=== PATIENT | male | born 1960 | race Caucasian/White ===

== ENCOUNTER → 2016-11-28 | Outpatient (CLI) | payer BC ==
[~2016-11-28] MED LIST: ASCA500 PO; ASPI81TA28 PO; FEXO1TAB46 PO; NSNN50 NAE; OLME1TAB11 PO; SUMA50TA15 PO; WHEAPOW PO
--- NOTE | 2016-11-28 11:43 | DIAGNOSTIC IMAGING REPORT ---
LEFT KNEE 3 VIEWS CLINICAL HISTORY: Bilateral knee pain. Positive AMA. COMPARISON: None. DISCUSSION: No acute fractures or dislocations are visualized. There is fragmentation of the anterior tibial tuberosity which is felt to be chronic. There are tiny dorsal patellar spurs. There is irregularity and fragmentation of the lateral tibial spine. This is felt to be old. There is no erosive disease IMPRESSION: Chronic changes as described above. No acute fractures. No evidence of erosive disease. Electronically signed by: Roque Finn M.D. 11/28/2016 11:42 AM Dictated Date/Time: 11/28/2016 11:41 AM
--- NOTE | 2016-11-28 11:44 | DIAGNOSTIC IMAGING REPORT ---
RIGHT KNEE 3 VIEWS CLINICAL HISTORY: Bilateral knee pain. Positive CYRIL. COMPARISON: Right knee radiograph July 08, 2013. FINDINGS: Alignment of the right knee is anatomic. There is no fracture or suspicious lesion. There is mild medial compartment joint space narrowing with moderate osteophytosis. There may be a small right knee joint effusion. IMPRESSION: 1. Mild to moderate osteoarthritis of the right knee, most pronounced within the medial compartment. 2. No fracture. 3. No radiographic evidence of an erosive/inflammatory arthropathy. Electronically signed by: Randolph Mendoza M.D. 11/28/2016 11:43 AM Dictated Date/Time: 11/28/2016 11:41 AM
--- NOTE | 2016-11-28 11:44 | DIAGNOSTIC IMAGING REPORT ---
RIGHT HAND MIN 3 VIEWS ROUTINE CLINICAL HISTORY: Right hand pain. Positive CYRIL. COMPARISON: None. DISCUSSION: No fractures or dislocations are visualized. The bony mineralization appears normal. There is no erosive disease. IMPRESSION: 1. Normal bony mineralization 2. No acute fractures 3. No evidence of erosive disease Electronically signed by: Roque Finn M.D. 11/28/2016 11:42 AM Dictated Date/Time: 11/28/2016 11:42 AM
--- NOTE | 2016-11-28 11:45 | DIAGNOSTIC IMAGING REPORT ---
PELVIS 1 OR 2 VIEW ROUTINE CLINICAL HISTORY: Bilateral knee pain. Positive CYRIL. COMPARISON STUDY: CT of the abdomen and pelvis October 24, 2006. FINDINGS: The sacroiliac joints and symphysis pubis are intact. There is no fracture or suspicious lesion. No erosions are identified along the sacroiliac joints. Hip joint spaces are preserved. IMPRESSION: Unremarkable pelvis radiograph. Electronically signed by: Randolph Mendoza M.D. 11/28/2016 11:43 AM Dictated Date/Time: 11/28/2016 11:43 AM
--- NOTE | 2016-11-29 08:26 | DIAGNOSTIC IMAGING REPORT ---
LEFT HAND MIN 3 VIEWS ROUTINE, LEFT KNEE 1 OR 2 VIEWS ROUTINE HISTORY: 56 years-old Male M25.561 Bilateral knee painM25.562 Positive CYRIL (antinuclear ant COMPARISON: None available TECHNIQUE: 3 views of the left hand and 3 views of the right hand FINDINGS: Left hand: Mild first carpometacarpal osteoarthritis is present. Joint spaces otherwise are well-maintained without evidence of erosive arthropathy. There is no acute fracture or dislocation. Soft tissues are unremarkable. Right hand: Mild first carpal metacarpal osteoarthritis is noted. No acute fracture, dislocation or evidence of erosive arthropathy. Soft tissues are within normal limits. Negative for radiopaque foreign body. IMPRESSION: 1. No acute bony abnormality of the right or left hand. 2. Mild degenerative changes involve the first carpometacarpal joints bilaterally. 3. No evidence of erosive arthropathy. The above report was generated using voice recognition software. It may contain grammatical, syntax or spelling errors. Electronically signed by: Chris Keys M.D. 11/28/2016 11:48 AM Dictated Date/Time: 11/28/2016 11:45 AM
== END | disposition home or self-care (01) ==
LOC: C.RAD1850 11:10
PROVIDERS: ATTEND Internal Medicine Rheumatology
DX: M25.561 Pain in right knee (principal); M25.562 Pain in left knee; M54.5 Low back pain; R76.8 Other specified abnormal immunological findings in serum; M17.11 Unilateral primary osteoarthritis, right knee; M89.9 Disorder of bone, unspecified

== ENCOUNTER → 2017-03-29 | Day surgery (SDC) | payer BC ==
[2017-03-06 07:55] VITALS: Ht 170.2 cm; Wt 102.3 kg
[~2017-03-29] VITALS: Ht 170.2 cm; Wt 102.3 kg
[~2017-03-29] MED LIST changes: +CYAN10005 PO; -FEXO1TAB46 PO; +IOPAMIDOL INJ 61% 15 ML VIAL ONE; +LIDOCAINE HCL 1% MPF 5 ML VIAL ONE; +LOSA50TA54 PO; +MELO7.5T5 PO; +MULT-506 PO; -NSNN50 NAE; -OLME1TAB11 PO; +PRLSR20 PO; +SODIUM CHLORIDE 0.9% INJ 10 ML VIAL ONE; -WHEAPOW PO
--- NOTE | 2017-03-29 14:48 | History & Physical Bridge - SC ---
H&P Re-Evaluation Bridge Note: I have examined the patient, reviewed the History & Physical and in the interval since the performance of the History & Physical I have noted the following changes of clinical significance: No changes noted
[2017-03-29 15:11] VITALS: BP 112/72; PULSE 62; TEMP 37.2; O2SAT 94
--- NOTE | 2017-03-29 15:18 | Discharge Instructions ---
Discharge Instructions Date of Service Mar 29, 2017. Visit Reason for Visit: Lumbar Radiculopathy Discharge Discharge Diagnosis / Problem: bilateral thigh weakness Discharge Goals Goal(s): Decrease discomfort, Improve function Medications Stopped Medications Name(s): aspirin mobic Activity Recommendations Activity Limitations: resume your previous activity Anesthesia . Post Anesthesia Instructions: If you have had General Anesthesia or IV Sedation: * Do not drive today. * Resume driving when surgeon permits. * Do not make important decisions or sign legal documents today. * Call surgeon for: 1. Temperature elevations greater than 101 degrees F. 2. Uncontrollable pain. 3. Excessive bleeding. 4. Persistent nausea and vomiting. 5. Medication intolerance (nausea, vomiting or rash). * For nausea and vomiting use only clear liquids such as: tea, soda, bouillon until nausea subsides, then gradually increase diet as tolerated. * If you have any concerns or questions, call your surgeon's office. If physician is unavailable and it is an emergency, call 911 or go to the nearest emergency room. . Diet Recommendations Recommended Home Diet: resume previous diet Procedures Procedures Performed: Lumbar Epidural Steroid Injection Pending Studies Studies pending at discharge: no Medical Emergencies . Who to Call and When: Medical Emergencies: If at any time you feel your situation is an emergency, please call 911 immediately. . Non-Emergent Contact Non-Emergency issues call your: Specialist . . "Provider Documentation" section prepared by Daniel Martinez. .
--- NOTE | 2017-03-29 15:42 | OPERATIVE REPORT ---
DATE OF OPERATION: 03/29/2017 PREOPERATIVE DIAGNOSIS: L3-L4 disk disease with bilateral L3-L4 radiculopathies. POSTOPERATIVE DIAGNOSIS: Same. PROCEDURE: Right paramedian L3-L4 intralaminar epidural steroid injection under fluoroscopic guidance. INDICATIONS: The patient is a 57-year-old white male who has had issues with weakness of the quads, the knees and legs giving out. The problems have been increasing overtime. He is known to have a lumbar radiculopathy at L3-L4 as known from an EMG nerve conduction study. He presents today for an epidural injection to provide him with some relief of the pain that is a celment contributor to this problem and will improve his functional status. PHYSICAL EXAMINATION: GENERAL: Pleasant male seated comfortably in no apparent distress. MUSCULOSKELETAL: He has no issues with forward flexion or extension. He had normal lower extremity strength, intact sensation and increased sensation in the S1 dermatomal distribution. Negative seated straight leg raises. CONSENT: Verbal and written consent was obtained from the patient. Risks and benefits were reviewed. Risks include, but are not limited to epidural abscess, epidural hematoma, allergic reaction, and dural puncture. The patient wishes to proceed. DESCRIPTION OF PROCEDURE: The patient was taken back into the special procedures room of the [facility], where he was maintained in a prone position. Backside was cleansed with Betadine x3 and a dry sterile dressing was applied. Fluoroscope was used to identify the L3-L4 intralaminar space. Overlying skin on the right side was then anesthetized with 4 mL of lidocaine 1% with a 25-gauge 1-1/2 inch needle. A 22-gauge 3-1/2 inch Tuohy needle was then directed down towards the intralaminar space. It was advanced under lateral fluoroscopic guidance and loss of resistance was noted at a depth of 5 cm. Isovue-300 contrast 1 mL was injected in which demonstrated epidural uptake pattern. He then underwent injection after negative aspiration of 40 mg of Depo-Medrol and 4 mL of sodium chloride. Injection was well tolerated. DISPOSITION: 1. The patient was taken out into the discharge recovery area, where he will be discharged home once discharge criteria have been met. 2. Follow up in the [facility] office in 4 weeks' time. I attest to the content of the Intraoperative Record and any orders documented therein. Any exception s are noted below.
== END | disposition home or self-care (01) ==
LOC: X.SURG 13:48
PROVIDERS: ATTEND Physical Medicine & Rehabilitation
DX: M51.16 Intervertebral disc disorders with radiculopathy, lumbar region (principal); K21.9 Gastro-esophageal reflux disease without esophagitis; I10 Essential (primary) hypertension; E78.5 Hyperlipidemia, unspecified; Z91.040 Latex allergy status; Z79.82 Long term (current) use of aspirin; Z79.899 Other long term (current) drug therapy; Z82.49 Family history of ischemic heart disease and other diseases of the circulatory system

== ENCOUNTER → 2017-04-27 | Day surgery (SDC) | payer BC, OTHER ==
[2017-04-06 11:34] VITALS: Ht 170.2 cm; Wt 102.3 kg
[~2017-04-27] VITALS: Ht 170.2 cm; Wt 102.3 kg
[~2017-04-27] MED LIST changes: +ATROPINE SULFATE 0.1 MG/ML 5ML SYR IV PRN; +BUPIVACAINE/EPINEPHRINE 0.5% MPF 1:200,000 30 ML VIAL ONE; +CEFAZOLIN 2000MG IV PUSH 10 ML IV SCH; +EpHEDrine SULFATE INJ 50 MG/ML AMP IV PRN; +FENTANYL CITRATE INJ 50 MCG/1 ML 2 ML VIAL IV PRN; +HYDR-5688 PO; +HYDROCODONE/ACETAMOPHEN 5/325MG TAB PO PRN; +IBUP-103 PO; -IOPAMIDOL INJ 61% 15 ML VIAL ONE; +KETAMINE HCL INJ 50 MG/ML 10 ML VIAL ONE; +LACTATED RINGER'S 1000ML 1,000 ML IV SCH; -LIDOCAINE HCL 1% MPF 5 ML VIAL ONE; +LIDOCAINE HCL 2% 2 ML VIAL (20MG/ML) ONE; +LIDOCAINE/EPINEPHRINE 1% 20 ML VIAL ONE; -MELO7.5T5 PO; +MIDAZOLAM HCL 1 MG/ML 2ML VIAL ONE; +NAPR1TAB9 PO; +ONDANSETRON INJ 2 MG/ML 2 ML VIAL IV PRN; +PROPOFOL IV EMULSION 10 MG/ML 20 ML VIAL IV ONE; +SODIUM CHLORIDE 0.9% 1000ML 1,000 ML IV SCH
--- NOTE | 2017-04-27 11:19 | [facility] Post Operative Brief Note ---
Immediate Operative Summary Operative Date Apr 27, 2017. Pre-Operative Diagnosis Left ring trigger finger Post-Operative Diagnosis Same as pre-op Procedure(s) Performed Left Ring Trigger Finger Release Surgeon Nutrition Teacher Surgeon(s) Boris BOLAÑOS, Neli Larkin, student Estimated Blood Loss minimal Findings as above Specimens none Anesthesia local wiith IV sedation Complication(s) None Disposition Recovery Room / PACU
--- NOTE | 2017-04-27 11:34 | Discharge Instructions-SurgCtr ---
Discharge Instructions Date of Service Apr 27, 2017. Visit Reason for Visit: Left Ring Trigger Finger Discharge Discharge Diagnosis / Problem: left ring trigger finger Discharge Goals Goal(s): Decrease discomfort, Improve function, Increase independence Activity Recommendations Activity Limitations: per Instructions/Follow-up section Weightbearing Status: Left non-weightbearing (left hand) Anesthesia . Post Anesthesia Instructions: If you have had General Anesthesia or IV Sedation: * Do not drive today. * Resume driving when surgeon permits. * Do not make important decisions or sign legal documents today. * Call surgeon for: 1. Temperature elevations greater than 101 degrees F. 2. Uncontrollable pain. 3. Excessive bleeding. 4. Persistent nausea and vomiting. 5. Medication intolerance (nausea, vomiting or rash). * For nausea and vomiting use only clear liquids such as: tea, soda, bouillon until nausea subsides, then gradually increase diet as tolerated. * If you have any concerns or questions, call your surgeon's office. If physician is unavailable and it is an emergency, call 911 or go to the nearest emergency room. . Instructions / Follow-Up Instructions / Follow-Up The following are instructions to follow after minor hand surgery. ACTIVITY RECOMMENDATIONS: * Minimize activity until your first visit after surgery. * No excessive walking, jogging, sports or laboring. * Return to activity is individualized. Most patients are able to return to everyday activities within 2 weeks. * Return to sports or intensive labor usually occurs at 1-2 months. * DRIVING: Driving may be resumed when you feel you have adequate pain control and use of the hand. * BATHING: You may shower or sponge-bathe immediately after surgery. The dressing will need to be covered with a plastic bag or plastic wrap until the dressing is changed on the fourth or fifth day after surgery. Once the dressing has been changed on the fourth or fifth day after surgery, you may shower and get the incision wet. * Wash with regular soap and water. * Do not bathe (submerge the incision), soak, swim or use a hot tub until the incision is completely healed over with normal skin and the doctor has given the OK to proceed. * There is no need to apply any ointments, powders or salves to your incision. * Do not apply alcohol or hydrogen peroxide directly to the incision. Diluted peroxide (50:50 mixture with sterile saline) may be used to clean dried blood from around the incision area. WORK/SCHOOL: * You may return to sedentary work or school when you are feeling comfortable. This is usually 3-7 days after surgery. * Expect increased discomfort with increased activity. Continue to elevate and ice the hand as much as possible. DIET: * Resume previous diet. MEDICATIONS: * You will have a prescription for pain medication and an anti-inflammatory medication after surgery. Use the pain pills for severe pain and the anti-inflammatory for less severe pain. * Once the pain pills have run out, try to use the anti-inflammatory. If this is not effective then contact the office for assistance. * The pain medication may cause nausea, constipation and sleepiness. You should see how they affect you before driving or similar activity. * The anti-inflammatory may cause stomach upset and bleeding. If this occurs, let your doctor know immediately . * Some patients may need blood clot prevention. This can be done with either a pill or a simple shot. Your doctor will advise you on when to begin these medications and how to take them. * Do not take aspirin or other anti-inflammatory products (i.e. Advil or Aleve ) if taking blood thinner medication. * Take a stool softener like Colace or a stimulant like Senokot to prevent constipation. SPECIAL CARE INSTRUCTIONS: ICE: * Do not apply ice directly to the skin. * Use a thin dressing or stockinet between the skin and ice bag. The dressing in place after surgery will suffice. * Apply ice for 20-30 minutes and repeat every 2-4 hours. This is especially important for the first 3-7 days after surgery. * Once the pain improves, use ice as needed. ELEVATION: * Keep your hand elevated at or above the level of your heart as much as possible. * Expect some increased discomfort and swelling if you allow your hand to hang down for any length of time. DRESSING: * Your dressing will be changed 4-5 days after surgery by the physical therapist or physician's regulatory affairs assistant. Leave your dressing intact until this time. * You may then change your dressing daily with clean dry gauze or Band-aids and a soft wrap or stockinet. * Always wash your hands prior to touching the incision area. * Once the stitches are removed, you may leave the wound open to air or cover with a thin bandage. * There is no need to apply any ointments, powders or salves to your incision. * Expect some bloody drainage for the first few days after surgery. * Leave the tape strips in place (if present) for 5-7 days. * The initial dressing after surgery may become soaked with blood or fluid which is normal. You may reinforce your dressing with clean, dry gauze as needed. BRACE: * Bracing is generally not needed after routine hand surgery. THERAPY: * Physical therapy may be prescribed after your surgery. * For carpal tunnel and trigger digit surgery you may begin moving your fingers and wrist immediately after surgery as tolerated. * Be careful to not overuse. * Once the sutures are removed, further range of motion exercises can be performed. * Hand incisions may be very sensitive for a few months after surgery so avoid excessive pressure on the incision. If necessary, use a padded weightlifters' glove. * You may massage the incision with skin cream to make it less sensitive and reduce scarring. * Hand strength usually returns with normal use. * If needed, squeezing a soft sponge or Play-dough may help. * Your doctor will recommend physical therapy if necessary. PROBLEMS/QUESTIONS: * If you have any problems such as severe pain, numbness, tingling or high fevers or if you have any questions, please contact the office at [phone]. * It is not uncommon to have some numbness and tingling after the surgery especially if you have had a nerve block done. This should gradually improve over the first 1- 2 days. If this persists longer or worsens then contact the office. FOLLOW UP VISIT: * If not already scheduled, please call the office at to schedule follow-up appointments for approximately 10 days, 6 weeks and 3 months after surgery. * You have a follow up appointment with [facility] on 05/01/17 at 11 :15 a.m. * You have a follow up appointment with Dr. Michaud on 05/10/17 at 2:00 p.m. Diet Recommendations Home Diet: no limitations, resume previous diet Procedures Procedures Performed: Left Ring Trigger Finger Release Pending Studies Studies pending at discharge: no Medical Emergencies . Who to Call and When: Medical Emergencies: If at any time you feel your situation is an emergency, please call 911 immediately. . Non-Emergent Contact Non-Emergency issues call your: Surgeon Call Non-Emergent contact if: temperature is above 101, your pain is not controlled, your pain is worsening, your pain is unusual for you, wound has increased drainage, wound has increased redness, wound has increased pain, you have any medication questions . . "Provider Documentation" section prepared by Cathi Carr. . [place] Drug Monitoring Program Search Results: patient reviewed within database, no issues identified
[2017-04-27 11:37] VITALS: TEMP 36.6
--- NOTE | 2017-04-27 11:38 | [facility] Operative Report ---
Operative Report Operative Date Apr 27, 2017. Pre-Operative Diagnosis Left ring trigger finger Post-Operative Diagnosis Same as pre-op Procedure(s) Performed Left Ring Trigger Finger Release Surgeon Market Analysis Director Surgeon(s) Boris BOLAÑOS, MIKE [employer] student Estimated Blood Loss minimal Findings left ring finger trigger digit Specimens none Drains None Anesthesia local wiith IV sedation Complication(s) None Disposition Recovery Room / PACU (stable) Indications Patient is a 57 year old male with complaints of left hand ring finger locking and catching. It causes pain, interferes with daily activities. X-rays showed no bony abnormality. Surgical intervention recommended, he agreed to proceed. Risks/complications discussed, informed consent obtained. Description of Procedure Patient was taken to the operating room, placed under sedation, given 2gm IV Ancef for surgical prophylaxis. Time out performed, prepped and draped in routine sterile fashion. I was present during the entire case, please see Dr. Michaud's operative report for further detail. Patient was awakened and taken to the recovery room in stable condition. I attest to the content of the Intraoperative Record and any orders documented therein. Any exceptions are noted below.
--- NOTE | 2017-04-27 11:49 | Anesthesiology Progress Note ---
Anesthesia Post Op Note Date & Time Apr 27, 2017 at 11:49 Vital Signs Pain Intensity: 0 Vital Signs Past 12 Hours Date Time Temp Pulse Resp B/P (MAP) Pulse Ox O2 Delivery O2 Flow Rate FiO2 04/27/17 11:37 36.6 82 16 134/82 (99) 95 Room Air 04/27/17 09:53 36.8 60 22 143/93 (110) 98 Room Air Notes Mental Status: alert / awake / arousable, participated in evaluation Nausea / Vomiting: adequately controlled Pain: adequately controlled Airway Patency, RR, SpO2: stable & adequate BP & HR: stable & adequate Hydration State: stable & adequate Anesthetic Complications: no major complications apparent
[2017-04-27 12:00] VITALS: BP 136/87; PULSE 69; O2SAT 93
--- NOTE | 2017-04-27 12:52 | [facility] Operative Report ---
Operative Report Operative Date Apr 27, 2017. Pre-Operative Diagnosis Left ring trigger finger Post-Operative Diagnosis Same as pre-op Procedure(s) Performed Left Ring Trigger Finger Release Surgeon Optical Model Maker And Tester Surgeon(s) Boris BOLAÑOS, MIKE [employer] student Estimated Blood Loss minimal Findings As above Specimens none Anesthesia local with IV sedation Complication(s) None Disposition Recovery Room / PACU Indications The patient is a 57-year-old male with a symptomatic left ring finger trigger digit refractory to nonsurgical treatment. Description of Procedure Informed consent was obtained. The patient was identified as Lucius Ruiz. He identified the operative site as the left ring finger. A preoperative surgical timeout was performed. A preoperative dose of IV antibiotics was given. He was taken to the operating room positioned supine on the hospital stretcher. The left hand was suspended on a hand table. A tourniquet was applied to the left forearm. The preoperative exam showed passive locking with palpable nodule left ring finger. DVT prophylaxis was not indicated. 1% lidocaine with epinephrine was injected for analgesia. The limb was prepped and draped in usual sterile fashion. The limb was exsanguinated with the Esmarch and tourniquet inflated to 225 mmHg. A oblique incision was made overlying the metacarpophalangeal joint. Blunt dissection was performed down in the midline. Retractors were inserted and the thickened A1 kolton was identified and released. This relieved the triggering phenomenon. Full movement was obtained. The tendons looked normal there were no cysts or other pathological processes noted. The tenosynovium proximal to the kolton was also divided. The wound was irrigated with sterile saline and then the closed at the level of the skin with 4-0 nylon interrupted sutures. A soft sterile dressing was applied. The tourniquet was let down after 10 minutes of inflation. Patient was awakened from anesthesia and taken to the recovery room in stable condition. There were no specimens or complications. Counts are correct in the case. Blood loss was minimal. At the conclusion operation spoke the patient's informed her my findings. Postoperative instructions were given. He will be treated postoperatively according to my standard trigger digit pathway. I attest to the content of the Intraoperative Record and any orders documented therein. Any exceptions are noted below.
== END | disposition home or self-care (01) ==
LOC: X.SURG 09:27
PROVIDERS: ATTEND Physical Medicine & Rehabilitation Sports Medicine
DX: M65.342 Trigger finger, left ring finger (principal); I10 Essential (primary) hypertension; E78.5 Hyperlipidemia, unspecified; K21.9 Gastro-esophageal reflux disease without esophagitis; E66.9 Obesity, unspecified; M19.90 Unspecified osteoarthritis, unspecified site; E78.00 Pure hypercholesterolemia, unspecified; J45.909 Unspecified asthma, uncomplicated; Z87.01 Personal history of pneumonia (recurrent)

== ENCOUNTER 2017-05-23 20:51 | Inpatient (IN) | payer OTHER ==
[~2017-05-23] VITALS: Ht 170.2 cm; Wt 102.7 kg
[~2017-05-23 20:51] MED LIST changes: -ATROPINE SULFATE 0.1 MG/ML 5ML SYR IV PRN; -BUPIVACAINE/EPINEPHRINE 0.5% MPF 1:200,000 30 ML VIAL ONE; -CEFAZOLIN 2000MG IV PUSH 10 ML IV SCH; -EpHEDrine SULFATE INJ 50 MG/ML AMP IV PRN; -FENTANYL CITRATE INJ 50 MCG/1 ML 2 ML VIAL IV PRN; -HYDROCODONE/ACETAMOPHEN 5/325MG TAB PO PRN; -KETAMINE HCL INJ 50 MG/ML 10 ML VIAL ONE; -LACTATED RINGER'S 1000ML 1,000 ML IV SCH; -LIDOCAINE HCL 2% 2 ML VIAL (20MG/ML) ONE; -LIDOCAINE/EPINEPHRINE 1% 20 ML VIAL ONE; -MIDAZOLAM HCL 1 MG/ML 2ML VIAL ONE; -ONDANSETRON INJ 2 MG/ML 2 ML VIAL IV PRN; -PROPOFOL IV EMULSION 10 MG/ML 20 ML VIAL IV ONE; -SODIUM CHLORIDE 0.9% 1000ML 1,000 ML IV SCH; -SODIUM CHLORIDE 0.9% INJ 10 ML VIAL ONE
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
[2017-05-23 21:43] LABS: PTT PATIENT 31.3 SECONDS (21.0-31.0)
[2017-05-23 21:45] LABS: BASO % 0.3 %; BASO ABS # 0.03 K/uL (0-0.2); EOS ABS # 0.12 K/uL (0-0.5); HEMATOCRIT 21.5 % (42-52); HEMOGLOBIN 7.2 g/dL (14.0-18.0); IG# 0.03 K/uL (0.00-0.02); LYMPH % 10.9 %; LYMPH ABS # 1.29 K/uL (1.2-3.4); MEAN CELL VOLUME 93.5 fL (80-100); MEAN CORPUSCULAR HEMOGLOBIN 31.3 pg (25-34); MEAN CORPUSCULAR HGB CONC 33.5 g/dl (32-36); MEAN PLATELET VOLUME 9.9 fL (7.4-10.4); MONO % 11.2 %; MONO ABS # 1.32 K/uL (0.11-0.59); NEUT % 76.3 %; NEUT ABS # 9.03 K/uL (1.4-6.5); NUCLEATED RED BLOOD CELL ABS 0.02 K/uL (0-0); PLATELET COUNT 454 K/uL (130-400); RED CELL DISTRIBUTION WIDTH CV 13.9 % (11.5-14.5); RED CELL DISTRIBUTION WIDTH SD 47.5 fL (36.4-46.3); WHITE BLOOD COUNT 11.82 K/uL (4.8-10.8)
[2017-05-23 21:52] LABS: CALCIUM 8.1 mg/dl (8.5-10.1); CREATININE 1.78 mg/dl (0.60-1.40)
[2017-05-23] MEDS ORDERED: IPRASOL4 INH (21:55)
[2017-05-23] MEDS ORDERED: CYCL10TA6 PO (22:03)
[2017-05-23] MEDS ORDERED: FOLI1TAB8 PO (22:03)
[2017-05-23] MEDS ORDERED: OXYC-88 PO (22:03)
[2017-05-23] MEDS ORDERED: PANT1TAB3 PO (22:03)
[2017-05-23] MEDS ORDERED: ENOX30IN4 SQ (22:03)
[2017-05-23] MEDS ORDERED: FERR325T5 PO (22:03)
[2017-05-23] MEDS ORDERED: MORP1TAB11 PO (22:03)
[2017-05-23 22:04] LABS: TOTAL PROTEIN 6.3 gm/dl (6.4-8.2)
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
--- NOTE | 2017-05-23 22:24 | DIAGNOSTIC IMAGING REPORT ---
SINGLE VIEW CHEST CLINICAL HISTORY: Fever. Recent trauma with rib fractures. FINDINGS: An AP, portable, upright chest radiograph is obtained. No prior studies are available for comparison at the time of dictation. The examination is degraded by portable technique and patient rotation. The cardiomediastinal silhouette is unremarkable. There are small pleural effusions with bibasilar airspace opacities. No pneumothorax is seen. There are right-sided rib fractures. IMPRESSION: 1. There are small pleural effusions with bibasilar airspace opacities. This could represent atelectasis versus an infectious/inflammatory pneumonitis. Clinical correlation will be required. 2. There are right-sided rib fractures. No pneumothorax is seen. Electronically signed by: oJse Domingo M.D. 05/23/2017 10:23 PM Dictated Date/Time: 05/23/2017 10:20 PM
[2017-05-23] MEDS ORDERED: OPTIRAY 320 IV PRN (23:15)
[2017-05-23] MEDS ORDERED: CEFTRIAXONE SOD INJ 1 GM ADDVIAL IV STA (23:46)
[2017-05-24] VITALS (11 sets, daily range): BP systolic 106–135; BP diastolic 61–78; PULSE 85–104; TEMP 37–38.1; O2SAT 91–98; Ht 170.2 cm; Wt 102.7 kg
[2017-05-24] MEDS ORDERED: AZITHROMYCIN 250 MG TAB PO ONE
[2017-05-24] MEDS ORDERED: SODIUM CHLORIDE 0.9% 1000ML 1,000 ML IV STA (00:44)
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
[2017-05-24] MEDS ORDERED: NITROGLYCERIN 0.4 MG SL PER TAB CHARGE SL PRN (01:45)
[2017-05-24] MEDS ORDERED: ONDANSETRON INJ 2 MG/ML 2 ML VIAL IV PRN (01:45)
[2017-05-24] MEDS ORDERED: ALUMINUM/MAGNESIUM/SIMETH (MAALOX MAX) 30 ML UDC PO PRN (01:45)
[2017-05-24] MEDS ORDERED: MAGNESIUM HYDROXIDE SUSP 30 ML UDC PO PRN (01:45)
[2017-05-24] MEDS ORDERED: POLYETHYLENE (MIRALAX) 17 GM PACK PO PRN (01:45)
[2017-05-24] MEDS ORDERED: ACETAMINOPHEN 325 MG TAB PO PRN (01:45)
[2017-05-24] MEDS ORDERED: DOCUSATE SODIUM 100 MG CAP PO PRN (02:00)
[2017-05-24] MEDS ORDERED: ALBUT/IPRATROP 3MG/0.5MG NEB 3 ML VIAL INH PRN (02:00)
[2017-05-24] MEDS ORDERED: CEFEPIME IV 1,000 MG in DEXTROSE 5% 100ML 100 ML IV SCH (02:00)
[2017-05-24] MEDS: SODIUM CHLORIDE 0.9% 1000ML 1,000 ML IV SCH ×3 (03:08→23:11)
[2017-05-24] MEDS: CEFEPIME IV 1,000 MG in SYRINGE 0 ML IV SCH ×2 (03:09→14:14)
[2017-05-24] MEDS: OXYCODONE/ACETAMINOPHEN 10/325MG TAB PO PRN ×3 (03:35→20:18)
[2017-05-24 05:25] LABS: INFLUENZA A PCR Neg for Influ A (NEG); INFLUENZA B PCR Neg for Influ B (NEG)
[2017-05-24] MEDS: POLYETHYLENE (MIRALAX) 17 GM PACK PO SCH (06:16)
[2017-05-24] MEDS: CYCLOBENZAPRINE HCL 10 MG TAB PO PRN (06:43)
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
--- NOTE | 2017-05-24 06:55 | DIAGNOSTIC IMAGING REPORT ---
CT OF THE CHEST WITH IV CONTRAST CLINICAL HISTORY: recent rib fractures. low hgb COMPARISON STUDY: Chest x-ray dated 05/23/2017 TECHNIQUE: Following the IV administration of 115 mL of Optiray-320, CT of the thorax was performed from the thoracic inlet to the lung bases. Images are reviewed in the axial, sagittal, and coronal planes. IV contrast was administered without complication. A dose lowering technique was utilized adhering to the principles of ALARA. CT DOSE: FINDINGS: Thyroid: Imaged portions of the thyroid gland are normal in appearance. Thoracic aorta: The thoracic aorta is normal in course and caliber, noting standard 3-vessel arch anatomy. No aneurysm or dissection is seen. Pulmonary vasculature: The pulmonary trunk is normal in caliber. There are no central filling defects identified to suggest pulmonary embolus. Note that this examination was not protocoled for the evaluation of pulmonary emboli. HEART: The heart is normal in size and configuration, without pericardial effusion. Lungs and pleural spaces: There are bibasal or dependent airspace opacities, likely atelectatic. No pneumothorax is visualized. There are no significant pleural effusions. Mediastinum: There is no mediastinal lymphadenopathy. Hortencia: There is no evidence of pathologic hilar adenopathy Axilla: There is no evidence of pathologic axillary lymphadenopathy Upper abdomen: There is thickening of the Gerota's fascia on the left. Skeletal structures: There are acute fractures of the right fourth through eighth ribs. There are fractures of the left fifth sixth and ninth ribs which may be old. There is an equivocal mid manubrial fracture IMPRESSION: 1. No evidence of pneumothorax 2. No evidence of mediastinal injury 3. Bibasal airspace opacities. 4. Acute fractures of the right fourth through eighth ribs 5. Fractures the left fifth sixth and ninth ribs which may be old 6. Equivocal manubrial fracture 7. Thickening of Gerota's fascia on the left Electronically signed by: Roque Finn M.D. 05/24/2017 6:54 AM Dictated Date/Time: 05/24/2017 6:48 AM
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
[2017-05-24] MEDS: PANTOprazole SOD 40 MG TAB PO SCH (07:29)
[2017-05-24] MEDS: FERROUS SULFATE 325 MG TAB PO SCH (07:29)
[2017-05-24] MEDS: HYDROmorphone INJ 1 MG/ML SYR IV PRN ×2 (07:29→12:03)
[2017-05-24] MEDS: LIDODERM (LIDOCAINE) PATCH 5% TD SCH (07:30)
[2017-05-24 08:03] LABS: HEMATOCRIT 22.9 % (42-52); HEMOGLOBIN 7.7 g/dL (14.0-18.0); MEAN CELL VOLUME 91.6 fL (80-100); MEAN CORPUSCULAR HEMOGLOBIN 30.8 pg (25-34); MEAN CORPUSCULAR HGB CONC 33.6 g/dl (32-36); MEAN PLATELET VOLUME 9.7 fL (7.4-10.4); PLATELET COUNT 419 K/uL (130-400); RED CELL DISTRIBUTION WIDTH CV 14.5 % (11.5-14.5); RED CELL DISTRIBUTION WIDTH SD 48.4 fL (36.4-46.3); WHITE BLOOD COUNT 10.52 K/uL (4.8-10.8)
[2017-05-24 08:39] LABS: CREATININE 1.73 mg/dl (0.60-1.40); POTASSIUM 4.1 mmol/L (3.5-5.1)
[2017-05-24 08:40] LABS: PHOSPHORUS 3.8 mg/dl (2.5-4.9)
[2017-05-24] MEDS ORDERED: LOSARTAN POTASSIUM 50 MG TAB PO SCH (09:00)
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
[2017-05-24 18:22] LABS: HEMATOCRIT 22.7 % (42-52); HEMOGLOBIN 7.6 g/dL (14.0-18.0); RETIC COUNT % 1.9 % (0.5-2.0)
[2017-05-24] MEDS: AZITHROMYCIN IV 500 MG in DEXTROSE 5% 250ML 250 ML IV SCH (19:58)
--- NOTE | 2017-05-24 21:14 | DIAGNOSTIC IMAGING REPORT ---
RIGHT HIP 1 VIEW HISTORY: Rt Total hip arthroplasty COMPARISON: Right hip CT 05/23/2017. FINDINGS: There is no fracture or dislocation. Lateral soft tissue swelling likely due to recent incision. Skin sylvie are in place. A right total hip arthroplasty appears intact. IMPRESSION: Status post right total hip arthroplasty. No evidence for hardware complication. Electronically signed by: Julio Burk M.D. 05/24/2017 9:13 PM Dictated Date/Time: 05/24/2017 9:12 PM
[2017-05-25] VITALS (10 sets, daily range): BP systolic 118–128; BP diastolic 54–74; PULSE 84–93; TEMP 36.9–37.9; O2SAT 86–96
[2017-05-25] MEDS: CEFEPIME IV 1,000 MG in SYRINGE 0 ML IV SCH ×2 (02:37→12:59)
[2017-05-25] MEDS: OXYCODONE/ACETAMINOPHEN 10/325MG TAB PO PRN ×3 (02:41→20:33)
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
[2017-05-25 07:01] LABS: ALBUMIN 1.9 gm/dl (3.4-5.0); CREATININE 1.61 mg/dl (0.60-1.40); POTASSIUM 4.3 mmol/L (3.5-5.1)
[2017-05-25 07:05] LABS: TOTAL PROTEIN 6.4 gm/dl (6.4-8.2)
[2017-05-25 08:18] LABS: BASO % 0.3 %; BASO ABS # 0.03 K/uL (0-0.2); EOS % 1.8 %; HEMATOCRIT 24.8 % (42-52); HEMOGLOBIN 8.2 g/dL (14.0-18.0); IG# 0.03 K/uL (0.00-0.02); LYMPH % 8.2 %; LYMPH ABS # 0.91 K/uL (1.2-3.4); MEAN CELL VOLUME 91.5 fL (80-100); MEAN CORPUSCULAR HEMOGLOBIN 30.3 pg (25-34); MEAN CORPUSCULAR HGB CONC 33.1 g/dl (32-36); MEAN PLATELET VOLUME 9.4 fL (7.4-10.4); MONO % 7.7 %; MONO ABS # 0.85 K/uL (0.11-0.59); NEUT % 81.7 %; NEUT ABS # 9.02 K/uL (1.4-6.5); PLATELET COUNT 527 K/uL (130-400); RED CELL DISTRIBUTION WIDTH CV 14.1 % (11.5-14.5); RED CELL DISTRIBUTION WIDTH SD 46.5 fL (36.4-46.3); WHITE BLOOD COUNT 11.04 K/uL (4.8-10.8)
[2017-05-25] MEDS: PANTOprazole SOD 40 MG TAB PO SCH (09:02)
[2017-05-25] MEDS: FERROUS SULFATE 325 MG TAB PO SCH (09:02)
[2017-05-25] MEDS: HYDROmorphone INJ 1 MG/ML SYR IV PRN ×2 (09:03→13:01)
[2017-05-25] MEDS: POLYETHYLENE (MIRALAX) 17 GM PACK PO SCH (09:04)
[2017-05-25] MEDS: LIDODERM (LIDOCAINE) PATCH 5% TD SCH (09:05)
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
--- NOTE | 2017-05-25 15:46 | DIAGNOSTIC IMAGING REPORT ---
RIGHT WRIST 3 VIEWS CLINICAL HISTORY: Wrist fracture. FINDINGS: 3 views of the right wrist are obtained. No prior studies are available for comparison at the time of dictation. The examination is performed through a cast, obscuring fine bony detail. There is a minimally distracted fracture of the distal radial metaphysis with intra-articular extension. Alignment is near-anatomic. The distal ulna appears intact. No additional fracture is clearly identified. Overlying soft tissue edema is observed. IMPRESSION: There is a minimally distracted fracture of the distal radius with intra-articular extension as above. Electronically signed by: Jose Domingo M.D. 05/25/2017 3:45 PM Dictated Date/Time: 05/25/2017 3:43 PM
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
--- NOTE | 2017-05-25 16:34 | Consultant Recommendations ---
Sde Recommendations Date of Service May 25, 2017. Sde Recommendations When cleared medically, patient can be sent back to [facility] for inpatient rehab. Patient will need to follow up with his orthopedic surgeon at [facility] most likely at 2 wks post op. Should advised patient's to contact [facility] if the appointment is not already scheduled. Otherwise we will continue to follow him for his trigger finger surgery as indicated.
[2017-05-25] MEDS: ENOXAPARIN 40 MG/0.4 ML SYR SQ SCH (20:29)
[2017-05-25] MEDS: AZITHROMYCIN IV 500 MG in DEXTROSE 5% 250ML 250 ML IV SCH (20:37)
[2017-05-26] MEDS: CEFEPIME IV 1,000 MG in SYRINGE 0 ML IV SCH ×2 (02:07→13:46)
[2017-05-26 03:57] VITALS: TEMP 37.7
[2017-05-26 06:31] LABS: HEMATOCRIT 23.5 % (42-52); HEMOGLOBIN 7.8 g/dL (14.0-18.0); MEAN CELL VOLUME 91.4 fL (80-100); MEAN CORPUSCULAR HEMOGLOBIN 30.4 pg (25-34); MEAN CORPUSCULAR HGB CONC 33.2 g/dl (32-36); MEAN PLATELET VOLUME 9.4 fL (7.4-10.4); PLATELET COUNT 639 K/uL (130-400); RED CELL DISTRIBUTION WIDTH CV 13.9 % (11.5-14.5); RED CELL DISTRIBUTION WIDTH SD 46.4 fL (36.4-46.3)
[2017-05-26 07:11] LABS: CALCIUM 7.8 mg/dl (8.5-10.1); CREATININE 1.5 mg/dl (0.60-1.40)
[2017-05-26 07:47] VITALS: BP 142/88; PULSE 89; TEMP 36.9; O2SAT 94
[2017-05-26] MEDS: LIDODERM (LIDOCAINE) PATCH 5% TD SCH (09:00)
[2017-05-26] MEDS: POLYETHYLENE (MIRALAX) 17 GM PACK PO SCH (09:00)
[2017-05-26] MEDS: FERROUS SULFATE 325 MG TAB PO SCH (09:26)
[2017-05-26] MEDS: PANTOprazole SOD 40 MG TAB PO SCH (09:27)
[2017-05-26] MEDS: OXYCODONE/ACETAMINOPHEN 10/325MG TAB PO PRN ×2 (09:28→13:47)
[2017-05-26 09:32] VITALS: O2SAT 89
[2017-05-26 09:57] VITALS: O2SAT 2; O2SAT 94
[2017-05-26 16:07] VITALS: BP 126/78; PULSE 85; TEMP 37; O2SAT 94
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
[2017-05-26] MEDS ORDERED: LEVOFLOXACIN 750 MG TAB PO ONE (17:23)
[2017-05-26] MEDS: ENOXAPARIN 40 MG/0.4 ML SYR SQ SCH (18:41)
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
[2017-05-26 22:58] VITALS: BP 141/85; PULSE 85; TEMP 37.4; O2SAT 94
[2017-05-27] MEDS: OXYCODONE/ACETAMINOPHEN 10/325MG TAB PO PRN ×3 (04:29→13:34)
[2017-05-27 07:17] LABS: HEMATOCRIT 23.7 % (42-52); HEMOGLOBIN 7.9 g/dL (14.0-18.0); MEAN CELL VOLUME 91.2 fL (80-100); MEAN CORPUSCULAR HEMOGLOBIN 30.4 pg (25-34); MEAN CORPUSCULAR HGB CONC 33.3 g/dl (32-36); MEAN PLATELET VOLUME 9.2 fL (7.4-10.4); PLATELET COUNT 737 K/uL (130-400); RED CELL DISTRIBUTION WIDTH SD 46.3 fL (36.4-46.3); WHITE BLOOD COUNT 10.52 K/uL (4.8-10.8)
[2017-05-27 07:23] VITALS: BP 163/78; PULSE 87; TEMP 37; O2SAT 96
[2017-05-27 07:48] LABS: CALCIUM 8.1 mg/dl (8.5-10.1); CREATININE 1.28 mg/dl (0.60-1.40); POTASSIUM 4.1 mmol/L (3.5-5.1)
[2017-05-27] MEDS: POLYETHYLENE (MIRALAX) 17 GM PACK PO SCH (09:00)
[2017-05-27] MEDS: FERROUS SULFATE 325 MG TAB PO SCH (09:05)
[2017-05-27] MEDS: PANTOprazole SOD 40 MG TAB PO SCH (09:06)
[2017-05-27] MEDS: LIDODERM (LIDOCAINE) PATCH 5% TD SCH (09:07)
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
[2017-05-27] MEDS: LEVOFLOXACIN 750 MG TAB PO SCH (13:33)
[2017-05-27 15:22] VITALS: BP 116/71; PULSE 90; TEMP 36.8; O2SAT 91
[2017-05-27] MEDS: ENOXAPARIN 40 MG/0.4 ML SYR SQ SCH (16:31)
[2017-05-27] MEDS: MELOXICAM 7.5 MG TAB PO SCH (21:47)
[2017-05-27] MEDS: SERTRALINE HCL 50 MG TAB PO SCH (21:47)
[2017-05-27 23:11] VITALS: BP 151/86; PULSE 93; TEMP 37; O2SAT 91
[2017-05-28 07:10] VITALS: BP 145/81; PULSE 89; TEMP 37.1; O2SAT 93
[2017-05-28 07:31] LABS: BASO % 0.3 %; BASO ABS # 0.03 K/uL (0-0.2); EOS % 0.7 %; EOS ABS # 0.07 K/uL (0-0.5); HEMOGLOBIN 7.8 g/dL (14.0-18.0); IG# 0.04 K/uL (0.00-0.02); LYMPH % 9.1 %; LYMPH ABS # 0.86 K/uL (1.2-3.4); MEAN CORPUSCULAR HEMOGLOBIN 29.9 pg (25-34); MEAN CORPUSCULAR HGB CONC 32.5 g/dl (32-36); MEAN PLATELET VOLUME 9.5 fL (7.4-10.4); MONO ABS # 1.13 K/uL (0.11-0.59); NEUT % 77.5 %; NEUT ABS # 7.32 K/uL (1.4-6.5); PLATELET COUNT 860 K/uL (130-400); RED CELL DISTRIBUTION WIDTH CV 14.3 % (11.5-14.5); RED CELL DISTRIBUTION WIDTH SD 47.1 fL (36.4-46.3); WHITE BLOOD COUNT 9.45 K/uL (4.8-10.8)
[2017-05-28 08:02] LABS: CALCIUM 8.1 mg/dl (8.5-10.1); CREATININE 1.01 mg/dl (0.60-1.40); POTASSIUM 3.9 mmol/L (3.5-5.1)
[2017-05-28] MEDS: LOSARTAN POTASSIUM 50 MG TAB PO SCH (09:08)
[2017-05-28] MEDS: MELOXICAM 7.5 MG TAB PO SCH ×2 (09:09→21:06)
[2017-05-28] MEDS: PANTOprazole SOD 40 MG TAB PO SCH (09:09)
[2017-05-28] MEDS: POLYETHYLENE (MIRALAX) 17 GM PACK PO SCH (09:09)
[2017-05-28] MEDS: FERROUS SULFATE 325 MG TAB PO SCH (09:09)
[2017-05-28] MEDS: LIDODERM (LIDOCAINE) PATCH 5% TD SCH (09:10)
[2017-05-28] MEDS: LEVOFLOXACIN 750 MG TAB PO SCH (12:50)
[2017-05-28] MEDS: OXYCODONE/ACETAMINOPHEN 5-325 TAB PO PRN (12:51)
[2017-05-28] MEDS: CYCLOBENZAPRINE HCL 10 MG TAB PO PRN (15:53)
[2017-05-28 16:02] VITALS: BP 125/74; PULSE 77; TEMP 36.8; O2SAT 94
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
[2017-05-28] MEDS: ENOXAPARIN 40 MG/0.4 ML SYR SQ SCH (18:37)
[2017-05-28] MEDS: SERTRALINE HCL 50 MG TAB PO SCH (21:06)
[2017-05-28 22:40] VITALS: BP 137/79; PULSE 86; TEMP 36.9; O2SAT 96
[2017-05-29] VITALS (7 sets, daily range): BP systolic 124–142; BP diastolic 73–86; PULSE 75–84; TEMP 36.8–37.2; O2SAT 90–93
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
[2017-05-29] MEDS: FERROUS SULFATE 325 MG TAB PO SCH (10:06)
[2017-05-29] MEDS: LEVOFLOXACIN 750 MG TAB PO SCH (10:07)
[2017-05-29] MEDS: PANTOprazole SOD 40 MG TAB PO SCH (10:07)
[2017-05-29] MEDS: POLYETHYLENE (MIRALAX) 17 GM PACK PO SCH (10:08)
[2017-05-29] MEDS: LOSARTAN POTASSIUM 50 MG TAB PO SCH (10:08)
[2017-05-29] MEDS: MELOXICAM 7.5 MG TAB PO SCH (10:08)
[2017-05-29] MEDS: LIDODERM (LIDOCAINE) PATCH 5% TD SCH (10:09)
[2017-05-29] MEDS: OXYCODONE/ACETAMINOPHEN 5-325 TAB PO PRN ×2 (12:16→23:27)
[2017-05-29] MEDS ORDERED: IRON SUCROSE INJ 100 MG in SODIUM CHLORIDE 0.9% 100ML 100 ML IV ONE (19:15)
[2017-05-29] MEDS: ENOXAPARIN 40 MG/0.4 ML SYR SQ SCH (19:46)
[2017-05-29] MEDS: SERTRALINE HCL 50 MG TAB PO SCH (20:32)
[2017-05-30] MEDS: OXYCODONE/ACETAMINOPHEN 5-325 TAB PO PRN ×2 (03:56→09:46)
[2017-05-30 07:10] VITALS: BP 153/83; PULSE 80; TEMP 36.9; O2SAT 90
[2017-05-30 08:18] LABS: HEMATOCRIT 26.4 % (42-52); HEMOGLOBIN 8.5 g/dL (14.0-18.0); MEAN CELL VOLUME 93.6 fL (80-100); MEAN CORPUSCULAR HEMOGLOBIN 30.1 pg (25-34); MEAN CORPUSCULAR HGB CONC 32.2 g/dl (32-36); PLATELET COUNT 931 K/uL (130-400); RED CELL DISTRIBUTION WIDTH CV 14.7 % (11.5-14.5); RED CELL DISTRIBUTION WIDTH SD 49.9 fL (36.4-46.3); WHITE BLOOD COUNT 6.54 K/uL (4.8-10.8)
[2017-05-30 08:55] LABS: CALCIUM 8.1 mg/dl (8.5-10.1); CREATININE 0.89 mg/dl (0.60-1.40)
[2017-05-30] MEDS ORDERED: MELOXICAM 7.5 MG TAB PO SCH (09:00)
[2017-05-30] MEDS: PANTOprazole SOD 40 MG TAB PO SCH (09:41)
[2017-05-30] MEDS: POLYETHYLENE (MIRALAX) 17 GM PACK PO SCH (09:42)
[2017-05-30] MEDS: LIDODERM (LIDOCAINE) PATCH 5% TD SCH (09:42)
[2017-05-30] MEDS: LOSARTAN POTASSIUM 50 MG TAB PO SCH (09:42)
[2017-05-30] MEDS: FERROUS SULFATE 325 MG TAB PO SCH (09:42)
[2017-05-30] MEDS ORDERED: OXYC-88 PO (10:33)
[2017-05-30] MEDS ORDERED: LDDP5 TD (10:34)
[2017-05-30] MEDS ORDERED: ZLF50 PO (10:34)
--- NOTE | 2017-05-30 10:39 | Discharge Instructions ---
Discharge Instructions Date of Service May 30, 2017. Admission Reason for Admission: Matt,Ams,Anemia Discharge Discharge Diagnosis / Problem: Pneumonia Discharge Goals Goal(s): Decrease discomfort, Improve disease control, Therapeutic intervention , Prevent Disease Progression Activity Recommendations Activity Level: Assistance Required Therapies: Physical Therapy, Weight Bearing Status, Occupational Therapy . Additional Information Patient informed of condition: Yes Advance Directives: No DNR: No Level of Care: Acute Rehab Communicable Disease: No Prognosis: Improving Instructions / Follow-Up Instructions / Follow-Up Patient was admitted to the hospital due to worsening confusion and cough He was treated in the hospital for a Hospital acquired pneumonia. He has improved with a 7 day course of antibiotics. His hgb was 7.2 upon admission. He was transfused 1 unit of PRBC. His hgb was stable at 8.5 upon discharge. Patient was also started on lexapro for depression. Patient will need intensive physical therapy. Further info can be found in the discharge summary Current Hospital Diet Patient's current hospital diet: Regular Diet Discharge Diet Recommended Diet: Regular Diet Pending Studies Studies pending at discharge: no Medical Emergencies . Who to Call and When: Medical Emergencies: If at any time you feel your situation is an emergency, please call 911 immediately. . Non-Emergent Contact Non-Emergency issues call your: Primary Care Provider . . "Provider Documentation" section prepared by Víctor Ferrari. . Highway Inspector Recommendations Highway Inspector Recommendations: When cleared medically, patient can be sent back to [facility] for inpatient rehab. Patient will need to follow up with his orthopedic surgeon at Replaced by [facility] most likely at 2 wks post op. Should advised patient's to contact [facility] if the appointment is not already scheduled. Otherwise we will continue to follow him for his trigger finger surgery as indicated. Core Measure Problem Core Measures: None
[2017-05-30] MEDS ORDERED: MRLP17 PO (10:51)
[2017-05-30] MEDS ORDERED: LVNIS40 SQ (10:51)
[2017-05-30] MEDS ORDERED: CLC100X PO (10:51)
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
[2017-05-30] MEDS: LEVOFLOXACIN 750 MG TAB PO SCH (12:09)
[2017-05-30] MEDS: CYCLOBENZAPRINE HCL 10 MG TAB PO PRN (12:09)
[2017-05-30 14:26] VITALS: BP 153/83; PULSE 80; TEMP 36.9; O2SAT 90
== END 2017-05-30 14:40 | DRG 193 ==
LOC: EDBD 20:51 → C.EDA 20:53 → C.MSICU 05-24 01:49 → ENRESERV 05-25 17:15 → C.MSN 05-25 18:36
PROVIDERS: ADMIT Internal Medicine; ATTEND Family Medicine
DX: J18.9 Pneumonia, unspecified organism (principal); G93.41 Metabolic encephalopathy; N17.9 Acute kidney failure, unspecified; D64.9 Anemia, unspecified; E86.0 Dehydration; M79.604 Pain in right leg; K59.03 Drug induced constipation; T40.2X5A Adverse effect of other opioids, initial encounter; S22.41XD Multiple fractures of ribs, right side, subsequent encounter for fracture with routine healing; S74.01XD Injury of sciatic nerve at hip and thigh level, right leg, subsequent encounter; S62.101D Fracture of unspecified carpal bone, right wrist, subsequent encounter for fracture with routine healing; I12.9 Hypertensive chronic kidney disease with stage 1 through stage 4 chronic kidney disease, or unspecified chronic kidney disease; F32.9 Major depressive disorder, single episode, unspecified; N18.3 Chronic kidney disease, stage 3 (moderate); K21.9 Gastro-esophageal reflux disease without esophagitis; Z79.899 Other long term (current) drug therapy; Z96.641 Presence of right artificial hip joint; Z88.8 Allergy status to other drugs, medicaments and biological substances; Z91.040 Latex allergy status; Z83.79 Family history of other diseases of the digestive system; V49.9XXD Car occupant (driver) (passenger) injured in unspecified traffic accident, subsequent encounter